=== PATIENT | male | born 1935 | race Caucasian/White ===

== ENCOUNTER 2021-03-29 11:42 | Inpatient (IN) ==
[2021-03-29] MEDS ORDERED: IOPAMIDOL 100 ML BOTTLE IV ONE (11:43)
--- NOTE | 2021-03-29 11:55 | Emergency Department Note ---
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 Per here w/ him LKW was 22:30 last night when he went to bed. He awoke this AM and had slurred speech, which persisted for a few hours and has nearly resolved at this point. He additionally pulled off his diaper this AM and urinated in the room. Otherwise he has been in his usual state of health. Further HX limited as he is somewhat altered and sluggish to respond, along w/ having very poor hearing. Related Data Home Medications Medication Instructions Recorded Confirmed multivitamin with minerals 1 tab PO QAM tab 05/12/19 03/19/21 (Multiple Vitamin-Minerals) vitamin B complex 1 cap PO QPM cap 05/12/19 03/29/21 cholecalciferol (vitamin D3) 125 125 mcg PO QDAY 09/26/19 03/29/21 mcg (5,000 unit) tablet (Vitamin D3) Previous Rx's Medication Instructions Recorded polyethylene glycol 3350 17 gram 17 g PO HSP PRN #100 each 11/30/18 oral powder packet apixaban 2.5 mg tablet (Eliquis) 2.5 mg PO BID #60 tab 03/04/20 hydrocodone 7.5 mg-acetaminophen 1 - 2 tab PO Q4-6HP PRN #120 tab 06/17/20 325 mg tablet diclofenac sodium 1 % topical gel 2 g TOPICAL QID #100 g 07/10/20 (Voltaren Arthritis Pain) finasteride 5 mg tablet 5 mg PO QDAY #90 tab 10/15/20 mirabegron 50 mg tablet,extended 50 mg PO QDAY #90 tab 12/12/20 release 24 hr (Myrbetriq) tamsulosin 0.4 mg capsule See Rx Instructions .ROUTE 12/23/20 .COMPLEX #180 cap omeprazole 40 mg capsule,delayed See Rx Instructions .ROUTE 01/22/21 release .COMPLEX #180 unknown measurement unit code: capsule duloxetine 60 mg capsule,delayed See Rx Instructions .ROUTE 02/10/21 release .COMPLEX #90 cap loratadine 10 mg tablet 10 mg PO QDAY #30 tab 02/12/21 levothyroxine 75 mcg tablet 75 mcg PO QDAY #90 tab 02/24/21 fentanyl 75 mcg/hr transdermal See Rx Instructions .ROUTE 03/12/21 patch .COMPLEX #15 ea lisinopril 40 mg tablet 20 mg PO QDAY #30 tab 03/12/21 memantine 5 mg tablet (Namenda) 5 mg PO BID #60 tab 03/14/21 Allergies Allergy/AdvReac Type Severity Reaction Status Date / Time No Known Drug Allergies Allergy Verified 03/29/21 12:14 Review of Systems ROS ROS Narrative: Narrative: All systems ED: reviewed and negative except as stated. 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) Postoperative pain (Chronic) Pain and swelling of knee (Chronic) Septic arthritis (Chronic) Fever, unknown origin (Chronic) Deep vein thrombosis (Chronic ~2011) Anemia (Chronic) Fracture of ankle, closed (Chronic) Anticoagulant long-term use (Chronic) Bladder neck obstruction (Chronic) Cellulitis and abscess (Chronic) Chronic neck pain (Chronic) Colonic polyp (Chronic) History of gout (Chronic) Hyperlipidemia (Chronic) Hypersomnia with sleep apnea (Chronic) Hypothyroidism (acquired) (Chronic) Knee pain (Chronic) Menieres disease (Chronic) Osteoarthritis (Chronic) Spinal stenosis (Chronic) Spondylolisthesis, acquired (Chronic) Testicular mass (Chronic) History of arthroscopic knee surgery (Chronic) History of carpal tunnel repair (Chronic) History of intraocular lens implant (Chronic) H/O repair of right rotator cuff (Chronic) History of nasal septoplasty (Chronic) Dehydration (Chronic) Syncope due to orthostatic hypotension (Chronic) BPH with obstruction/lower urinary tract symptoms (Chronic) Hay fever (Chronic) Arthritis (Chronic) Erectile dysfunction (Chronic) GERD (gastroesophageal reflux disease) (Chronic) Hypothyroid (Chronic) DVT (deep venous thrombosis) (Chronic) DDD (degenerative disc disease) (Chronic) Difficulty swallowing (Chronic) Indigestion (Chronic) Loss of appetite (Chronic) Back pain (Chronic) Muscle stiffness (Chronic) Fall (Acute) Head injury (Acute) Subdural hematoma (Acute) Subarachnoid hemorrhage (Acute) Pulmonary embolism on left (Acute) Thrombosis of popliteal vein (Acute) 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) Concussion with loss of consciousness of 30 minutes or less, subsequent encounter (Chronic) Speech articulation disorder (Chronic) Forgetfulness (Chronic) Sleeping excessive (Chronic) FH: Alzheimers disease (Chronic) Encounter for long-term (current) use of medications (Chronic) Pulmonary embolism (Chronic) Hx of deep venous thrombosis (Chronic) HTN (hypertension) (Chronic) Chronic narcotic dependence (Chronic) Laceration with foreign body of other part of head, sequela (Chronic) Shingles (Chronic ~10/2017) Encounter for preventative adult health care examination (Chronic) Chronic pain (Chronic) Degenerative disc disease, cervical (Chronic) Urinary incontinence (Chronic) Anticoagulated on Coumadin (Chronic) Dizziness (Chronic) Aortic stenosis (Chronic) Allergies (Chronic) Degenerative disc disease, lumbar (Chronic) Deviated septum (Chronic) Medicare annual wellness visit, subsequent (Chronic) Prostatic hypertrophy (Chronic) Positive colorectal cancer screening using Cologuard test (Acute 08/01/19) Senile dementia (Acute) BPH w urinary obs/LUTS (Acute) Impingement syndrome, shoulder, left (Acute) Mixed incontinence, urge and stress (male) (female) (Acute) Neurogenic bladder, NOS (Acute) Hematuria (Acute) Medical History Allergies Alzheimer's dementia Anemia 05/18/2014 Anticoagulant long-term use Anticoagulated on Coumadin Aortic stenosis Arthritis Back pain Bilateral cataracts Bladder neck obstruction BPH with obstruction/lower urinary tract symptoms Cellulitis and abscess 04/17/2014, 04/19/2014 Chronic narcotic dependence Chronic neck pain 05/18/2014 Chronic pain Colonic polyp Personal History of Concussion with loss of consciousness of 30 minutes or less, subsequent encounter DDD (degenerative disc disease) L-S Deep vein thrombosis (~2011) Degeneration of lumbar or lumbosacral intervertebral disc Degenerative disc disease, cervical Degenerative disc disease, lumbar Dehydration Deviated septum Difficulty swallowing Dizziness DVT (deep venous thrombosis) PE 2011, Chronic coumadin Tx Encounter for long-term (current) use of medications Encounter for preventative adult health care examination Erectile dysfunction Fever, unknown origin FH: Alzheimers disease Forgetfulness Fracture of ankle, closed R GERD (gastroesophageal reflux disease) Hay fever History of gout HTN (hypertension) Hx of deep venous thrombosis Hyperlipidemia Hypersomnia with sleep apnea 06/22/2014 Hypertension, essential Hypothyroid Hypothyroidism (acquired) Indigestion Knee pain 06/22/2014 right Laceration with foreign body of other part of head, sequela Loss of appetite Medicare annual wellness visit, subsequent Menieres disease Muscle stiffness Osteoarthritis Pain and swelling of knee Postoperative pain Prostatic hypertrophy benign prostatic hypertrophy with obstruction Pulmonary embolism Septic arthritis Shingles (~10/2017) Left abdomen Sleeping excessive Speech articulation disorder Spinal stenosis Spondylolisthesis, acquired Syncope due to orthostatic hypotension Testicular mass 04/17/2014, 04/19/2014 Traumatic subdural hemorrhage with loss of consciousness Urinary incontinence Surgical History H/O repair of right rotator cuff History of arthroscopic knee surgery right x2 History of carpal tunnel repair Bilateral History of esophagogastroduodenoscopy (EGD) (~06/30/16) Dr. Mejia - Normal w/possible presbyesophagus. History of intraocular lens implant Bilateral History of knee replacement, total (~07/2014) Right History of nasal septoplasty Family History Unknown Asthma Diabetes mellitus Essential hypertension Father , Age 76 Atherosclerosis of coronary artery Father at 76y and mother at 90 of old age Heart disease Hypertension Mother , Age 89 Atherosclerosis of coronary artery Brother Prostate cancer Sister Cancer Grandmother Heart disease Grandfather Heart disease Social History Smoking Status: Former smoker Alcohol Intake Frequency: former alcohol drinker Substance Use: does not use Exam Narrative Narrative: Narrative: General Limitations: altered mental status and physical limitation General appearance: Present alert and in no apparent distress Head Head: Present atraumatic and normocephalic ENT ENT: Present normal oropharynx and mucous membranes moist Chest Chest: Present normal inspection and symmetric chest wall rise Respiratory Respiratory: Present normal lung sounds bilaterally; Absent accessory muscle use or decreased breath sounds Cardiovascular Cardiovascular: Present regular rate, normal rhythm, +S1, +S2 and other (2+ B/L radial pulses); Absent systolic murmur or diastolic murmur Adbominal Abdominal: Present soft and normal bowel sounds; Absent distention or tenderness Extremities Extremities: Absent pedal edema Neurological Neurological: Present alert and other (Unable to answer AO questions, month, age, birthday. EOMI, no visual field deficits. No facial palsy or tongue deviation. B/LUE strength intact. RLE drift to bed, LLE strength intact. Intact sensation. Unable to understand ataxia instructions. Mild aphasia and dysarthria. No extinction. 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 DDx - CVA, SUPERINTENDENT infection, sepsis, seizure, metabolic/electrolyte d/o, arrhythmia, endocrine d/o Pt arrived w/ slurred speech and confusion. I evaluated him on arrival and he had an NIHSS of 8, w/ no assoc'd hypoglycemia and no threat to his airway. CT head and CTA head/neck were performed and were unremarkable. Clinically a seizure was unlikely. EKG showed first degree AV block and PVCs but this did not likely explain presentation. I d/w Dr Mullins w/ teleneuro who felt that he was not a tPA or endovascular candidate and recommended that he be admitted for further W/U including MRI if his infectious w/u is unremarkable. Given the nonfocal findings and the report of him urinating in the home I considered UTI b ut UA was unremarkable. I did not see evidence to suggest SUPERINTENDENT infection, PNA, cellulitis etc. CMP and CBC were unremarkable. Overall I felt a CVA was likely. ASA was not indicated in the ED per neuro as he was on apixaban. I d/w Dr Galloway who accepted him for admission. 12:32 d/w teleneuro, no tPA, will review CT head and CTA head/neck. She will call back w/ further recommendations. 12:45 d/w teleneuro, CT head and CTA head/neck negative, admit for further W/U, possible MRI, hold ASA as he is on apixaban. Lab Data Result diagrams: 03/29/21 11:56 03/29/21 11:55 Labs: Lab Results 03/29/21 03/29/21 03/29/21 Range/Units 11:55 11:56 11:56 WBC 5.6 (4.5-11.0) K/mcL RBC 3.94 L (4.63-6.08) M/mcL Hgb 12.2 L (13.7-17.5) g/dL Hct 36.1 L (40.1-51.0) % MCV 91.6 (80.0-100.0) fL MCH 31.0 (26.0-34.0) pg MCHC 33.8 (31.0-36.0) g/dL RDW 12.9 (11.5-14.5) % Plt Count 177 (140-440) K/mcL MPV 9.3 (7.4-10.4) fL Neut % (Auto) 79.2 H (38.0-78.0) % Lymph % (Auto) 15.3 L (15.5-49.0) % [place] % (Auto) 4.4 (1.0-12.0) % Eos % (Auto) 0.7 (0.0-7.0) % Baso % (Auto) 0.4 (0.0-2.0) % Lymph # (Auto) 0.86 L (1.50-4.80) K/mcL [place] # (Auto) 0.25 (0.10-0.90) K/mcL Eos # (Auto) 0.04 (0.00-0.70) K/mcL Baso # (Auto) 0.02 (0.00-0.30) K/mcL Absolute Neutrophils 4.45 (1.80-8.00) K/mcL POC PT 13.1 (11.9-14.5) sec PT 14.6 H (11.9-14.5) sec POC INR 1.1 (0.8-1.2) INR 1.1 (0.9-1.1) APTT 26.2 (20.0-37.0) sec Sodium 135 (133-145) mmol/L Potassium 4.1 (3.3-5.1) mmol/L Chloride 97 (96-108) mmol/L Carbon Dioxide 26 (22-30) mmol/L Anion Gap 12.0 (8.0-16.0) BUN 10 (8-23) mg/dL Creatinine 0.8 (0.7-1.2) mg/dL POC Creatinine 0.8 (0.6-1.2) mg/dL GFR Calculation 81 Glucose 94 (70-105) mg/dL Calcium 9.3 (8.6-10.4) mg/dL Total Bilirubin 0.6 (0.1-1.0) mg/dL AST 16 (<40) U/L ALT 12 (<40) U/L Alkaline Phosphatase 57 (39-117) U/L Total Creatine Kinase 72 (24-195) U/L CK-MB (CK-2) 2.3 (<6.7) ng/mL Troponin T (<0.03) ng/mL Total Protein 7.0 (5.9-8.4) gm/dL Albumin 4.3 (3.2-5.2) gm/dL Globulin 2.7 (2.2-3.7) gm/dL Albumin/Globulin Ratio 1.6 (1.0-2.3) Urine Color Urine Appearance (Clear) Urine pH (5.0-9.0) Ur Specific [place] (1.000-1.035) Urine Protein (Negative) mg/dL Urine Glucose (UA) (Negative) mg/dL Urine Ketones (Negative) mg/dL Urine Occult Blood (Negative) brock/mcL Urine Nitrate (Negative) Urine Bilirubin (Negative) mg/dL Urine Urobilinogen mg/dL Ur Leukocyte Esterase (Negative) /uL Urine RBC (0-3) /hpf Urine WBC (0-4) /hpf Ur Squamous Epith Cells (0-4) /hpf Urine Bacteria (0) /hpf Ur Culture Indicated? 03/29/21 03/29/21 Range/Units 11:56 13:37 WBC (4.5-11.0) K/mcL RBC (4.63-6.08) M/mcL Hgb (13.7-17.5) g/dL Hct (40.1-51.0) % MCV (80.0-100.0) fL MCH (26.0-34.0) pg MCHC (31.0-36.0) g/dL RDW (11.5-14.5) % Plt Count (140-440) K/mcL MPV (7.4-10.4) fL Neut % (Auto) (38.0-78.0) % Lymph % (Auto) (15.5-49.0) % [place] % (Auto) (1.0-12.0) % Eos % (Auto) (0.0-7.0) % Baso % (Auto) (0.0-2.0) % Lymph # (Auto) (1.50-4.80) K/mcL [place] # (Auto) (0.10-0.90) K/mcL Eos # (Auto) (0.00-0.70) K/mcL Baso # (Auto) (0.00-0.30) K/mcL Absolute Neutrophils (1.80-8.00) K/mcL POC PT (11.9-14.5) sec PT (11.9-14.5) sec POC INR (0.8-1.2) INR (0.9-1.1) APTT (20.0-37.0) sec Sodium (133-145) mmol/L Potassium (3.3-5.1) mmol/L Chloride (96-108) mmol/L Carbon Dioxide (22-30) mmol/L Anion Gap (8.0-16.0) BUN (8-23) mg/dL Creatinine (0.7-1.2) mg/dL POC Creatinine (0.6-1.2) mg/dL GFR Calculation Glucose (70-105) mg/dL Calcium (8.6-10.4) mg/dL Total Bilirubin (0.1-1.0) mg/dL AST (<40) U/L ALT (<40) U/L Alkaline Phosphatase (39-117) U/L Total Creatine Kinase (24-195) U/L CK-MB (CK-2) (<6.7) ng/mL Troponin T < 0.01 (<0.03) ng/mL Total Protein (5.9-8.4) gm/dL Albumin (3.2-5.2) gm/dL Globulin (2.2-3.7) gm/dL Albumin/Globulin Ratio (1.0-2.3) Urine Color Yellow Urine Appearance Clear (Clear) Urine pH 7.5 (5.0-9.0) Ur Specific [place] 1.015 (1.000-1.035) Urine Protein Negative (Negative) mg/dL Urine Glucose (UA) Negative (Negative) mg/dL Urine Ketones Negative (Negative) mg/dL Urine Occult Blood Trace-intact A (Negative) brock/mcL Urine Nitrate Negative (Negative) Urine Bilirubin Negative (Negative) mg/dL Urine Urobilinogen Normal mg/dL Ur Leukocyte Esterase Negative (Negative) /uL Urine RBC 2 (0-3) /hpf Urine WBC 1 (0-4) /hpf Ur Squamous Epith Cells 0 (0-4) /hpf Urine Bacteria None (0) /hpf Ur Culture Indicated? No EKG Data EKG #1: EKG attestation: Yes I reviewed and interpreted this EKG. and Yes There are no EKG findings of acute coronary syndrome EKG results narrative: Sinus rate of 64 MN 262 o/w normal QRS, QT/QTc intervals No STEMI First degree AV block Frequent PVCs Similar to previous but w/ new AV block and PVCs CC TIME Critical Care Time Attestation: Approximately 35 minutes of critical care time was used in order to assess and manage the high probability of imminent or life threatening deterioration to the central nervous system which required my highest level of preparedness and interventions with frequent patient assessments. This time is excluding time spent on separately billable procedures. Discharge Plan Patient/Caregiver Discharge Instructions Pt seen by [employer]/PA only: No Clinical Impression: Dysarthria, HTN (hypertension), Aphasia Patient Disposition: Xfer As Inpt ([facility]) Condition: Fair Follow up with: Chip Carrillo MD [Primary Care Provider] - Prescriptions: No Action polyethylene glycol 3350 17 gram powder in packet 17 g PO HSP PRN (Reason: Constipation) Qty: 100 3RF Eliquis 2.5 mg tablet 2.5 mg PO BID Qty: 60 12RF hydrocodone-acetaminophen 7.5-325 mg tablet 1 - 2 tab PO Q4-6HP PRN (Reason: Pain) Qty: 120 0RF finasteride 5 mg tablet 5 mg PO QDAY Qty: 90 3RF Myrbetriq 50 mg tablet extended release 24 hr 50 mg PO QDAY Qty: 90 7RF tamsulosin 0.4 mg capsule See Rx Instructions .ROUTE .COMPLEX Qty: 180 1RF Dose Instruction: TAKE TWO CAPSULES BY MOUTH EVERY EVENING Rx Instructions: TAKE TWO CAPSULES BY MOUTH EVERY EVENING omeprazole 40 mg capsule,delayed release(DR/EC) See Rx Instructions .ROUTE .COMPLEX Qty: 180 0RF Dose Instruction: TAKE ONE CAPSULE BY MOUTH TWICE DAILY Rx Instructions: TAKE ONE CAPSULE BY MOUTH TWICE DAILY duloxetine 60 mg capsule,delayed release(DR/EC) See Rx Instructions .ROUTE .COMPLEX Qty: 90 0RF Dose Instruction: TAKE ONE TABLET BY MOUTH DAILY Rx Instructions: TAKE ONE TABLET BY MOUTH DAILY levothyroxine 75 mcg tablet 75 mcg PO QDAY Qty: 90 3RF memantine [Namenda] 5 mg tablet 5 mg PO BID Qty: 60 0RF multivitamin with minerals tablet 1 tab PO QAM 0RF Rx Instructions: 1 po daily in the morning vitamin B complex Capsule 1 cap PO QPM 0RF Rx Instructions: 1 po every evening diclofenac sodium [Voltaren Arthritis Pain] 1 % gel 2 g topical QID Qty: 100 12RF Rx Instructions: apply to single elbow, wrist or hand; for hand includes palm/fingers/back of hand loratadine 10 mg tablet 10 mg PO QDAY Qty: 30 6RF lisinopril 40 mg tablet 20 mg PO QDAY Qty: 30 3RF fentanyl 75 mcg/hr patch 72 hour See Rx Instructions .ROUTE .COMPLEX Qty: 15 0RF Dose Instruction: apply ONE PATCH every 48 hours Rx Instructions: apply ONE PATCH every 48 hours, can fill 11/19/20 cholecalciferol (vitamin D3) [Vitamin D3] 125 mcg (5,000 unit) Tablet 125 mcg PO QDAY 0RF
[2021-03-29 12:03] LABS: POC Creatinine 0.8 mg/dL (0.6-1.2)
[2021-03-29 12:28] LABS: Basophils # (Auto) 0.02 K/mcL (0.00-0.30); Basophils % (Auto) 0.4 % (0.0-2.0); Eosinophils # (Auto) 0.04 K/mcL (0.00-0.70); Eosinophils % (Auto) 0.7 % (0.0-7.0); Hematocrit 36.1 % (40.1-51.0); Hemoglobin 12.2 g/dL (13.7-17.5); Lymphocytes # (Auto) 0.86 K/mcL (1.50-4.80); Lymphocytes % (Auto) 15.3 % (15.5-49.0); Mean Cell Volume 91.6 fL (80.0-100.0); Mean Corpuscular HGB Conc 33.8 g/dL (31.0-36.0); Mean Platelet Volume 9.3 fL (7.4-10.4); Monocytes # (Auto) 0.25 K/mcL (0.10-0.90); Monocytes % (Auto) 4.4 % (1.0-12.0); Neutrophils % (Auto) 79.2 % (38.0-78.0); Platelet Count 177 K/mcL (140-440); RBC 3.94 M/mcL (4.63-6.08); Red Cell Distribution Width 12.9 % (11.5-14.5); WBC 5.6 K/mcL (4.5-11.0)
[2021-03-29 12:39] LABS: POC INR 1.1 (0.8-1.2); POC Pro Time 13.1 sec (11.9-14.5)
--- NOTE | 2021-03-29 12:46 | Cat Scan Report ---
INDICATION: Neuro Deficit/acute stroke COMPARISON: Previous examination dated 11/24/2017 TECHNIQUE: Axial noncontrast-enhanced images through the brain. Sagittally and coronally reformatted images. FINDINGS: Cerebral hemispheres:There is mild cerebral atrophy, probably age appropriate. There is white matter abnormality consistent with small vessel ischemic change in this 86-year-old patient. There is left frontal encephalomalacia. No intra-axial hemorrhage. No acute intra-axial attenuation abnormalities. No localized mass effect. No midline shift. Brainstem and cerebellum:No intra-axial abnormality Extra-axial:No acute hemorrhage. No subdural or epidural hematoma. No subarachnoid hemorrhage. Basilar cisterns are normal. Some fat foci within the superior sagittal sinus are noted Calvarial:No calvarial fracture. No lytic lesion Temporal bones are negative. No destructive lesions Soft tissue, orbits, sinuses:Orbits and visualized facial soft tissues and paranasal sinuses are negative IMPRESSION: 1. No acute intracranial hemorrhage 2. White matter abnormality consistent with small vessel ischemic change 3. Left frontal encephalomalacia, nonacute The exam was performed using radiation dose optimization techniques including, but not limited to, automated exposure control, adjustment of the mA and/or kV according to patient size and use of iterative reconstruction technique. Interpreted and Authenticated by: Natalio Diego 03/29/21
[2021-03-29 12:54] LABS: ALT/SGPT 12 U/L (<40); AST/SGOT 16 U/L (<40); Albumin 4.3 gm/dL (3.2-5.2); Albumin/Globulin Ratio 1.6 (1.0-2.3); Alkaline Phosphatase 57 U/L (39-117); Bilirubin,Total 0.6 mg/dL (0.1-1.0); Blood Urea Nitrogen 10 mg/dL (8-23); Calcium 9.3 mg/dL (8.6-10.4); Carbon Dioxide 26 mmol/L (22-30); Chloride 97 mmol/L (96-108); Creatine Kinase 72 U/L (24-195); Creatine Kinase MB 2.3 ng/mL (<6.7); Globulin 2.7 gm/dL (2.2-3.7); Glomerular Filtration Rate 81; Glucose 94 mg/dL (70-105)
--- NOTE | 2021-03-29 12:56 | Cat Scan Report ---
INDICATION: neuro deficit/acute stroke COMPARISON: None. TECHNIQUE: Axial images were obtained through the upper chest, neck, and head during arterial phase. MIP and CPR reformatted images. 90ml Isovue 370 injected intravenously. FINDINGS: AORTIC ARCH: Mild calcified atherosclerotic plaque. Origins of the left subclavian artery, left vertebral artery, left common carotid artery, innominate artery, right common carotid artery, right subclavian artery, right vertebral artery are negative. No origin stenosis. CAROTID ARTERIES:Right: Right common carotid artery is negative. No stenosis or occlusion. Calcified plaque at the origin of the right internal carotid artery. No significant stenosis or evidence for ulceration. Right internal carotid artery is otherwise negative. No stenosis or occlusion. No fibromuscular dysplasia or dissection. Left: Left common carotid artery is negative. No stenosis or occlusion Calcified and mild noncalcified plaque at the origin of left internal carotid artery. There is mild luminal narrowing but no hemodynamically significant stenosis. No evidence for ulceration. Left internal carotid artery is otherwise negative. There is no stenosis or occlusion. No dissection or evidence for fibromuscular dysplasia VERTEBRAL ARTERIES:Vertebral arteries are patent without stenosis or occlusion [place]:[Calcified plaque in the cavernous segments of both internal carotid arteries. Right cavernous internal carotid artery is negative for stenosis. In the cavernous segment of the left internal carotid artery there is luminal narrowing. This is consistent with greater than 50% diameter. M1 segments of the middle cerebral arteries and A1 segments of the anterior cerebral arteries are negative. Intracranial vertebral arteries and basilar artery are negative. Posterior cerebral arteries and superior cerebellar arteries are negative] INTRACRANIAL CIRCULATION:No intracranial branch occlusion. No arteriovenous malformation or aneurysm No dural sinus occlusion UPPER CHEST:No pulmonary parenchymal mass or focal infiltrate. Superior mediastinum is negative NECK:No solid or cystic soft tissue mass. No pathologic lymphadenopathy. BRAIN:No acute intracranial hemorrhage. No focal attenuation abnormalities or pathologic contrast enhancement. IMPRESSION: 1. No intracranial branch occlusion 2. Atherosclerotic calcification in the proximal right internal carotid artery. No significant stenosis 3. Calcified and mild noncalcified plaque in the proximal left internal carotid artery. No hemodynamically significant stenosis 4. Calcified plaque in the cavernous segments of both internal carotid arteries. Greater than 50% diameter stenosis in the left internal carotid artery The exam was performed using radiation dose optimization techniques including, but not limited to, automated exposure control, adjustment of the mA and/or kV according to patient size and use of iterative reconstruction technique. Interpreted and Authenticated by: Natalio Diego 03/29/21
[2021-03-29 13:01] LABS: INR 1.1 (0.9-1.1); Partial Thromboplastin Time 26.2 sec (20.0-37.0); Prothrombin Time 14.6 sec (11.9-14.5)
[2021-03-29 14:04] LABS: Appearance,Urine Clear (Clear); Bilirubin,Urine Negative (Negative); Color,Urine Yellow; Culture Indicated,Urine No; Glucose,Urine (UA) Negative (Negative); Ketones,Urine Negative (Negative); Leukocyte Esterase,Urine Negative /uL (Negative); Nitrate,Urine Negative (Negative); PH,Urine 7.5 (5.0-9.0); Protein,Urine Negative (Negative); Specific Gravity,Urine 1.015 (1.000-1.035); Urine Blood Trace-intact ery/mcL (Negative); Urine RBC 2 /hpf (0-3); Urine Squamous Epithelial Cell 0 /hpf (0-4); Urine WBC 1 /hpf (0-4); Urobilinogen,Urine Normal
--- NOTE | 2021-03-29 18:16 | Internal Med History&Physical ---
HPI History of Present Illness Patient information: Note initiated : 03/29/21 at 6:08 pm Service Date, if different from initiated Date: [] Patient: Garry Chang 86 y/o M admitted on for HTN/WOLFF. Chief Complaint: [] Chief complaint: slurred speech History of present illness: Mr. Chang is a 86 year old male with a history of hypertension, recurrent DVT, pulmonary embolism, hypothyroidism, BPH, degenerative disc disease, chronic pain on opioids, Alzheimer's dementia who presented to the emergency department for slurred speech and aphasia. The patient's last known normal was 10:30 PM on 03/28/2021, the night prior to presenting to the emergency department. The patient underwent a stroke work-up in the ED that included a noncontrast CT head, CTA head and neck. There was no evidence of acute infarct on the CT scan, there was evidence of calcified plaque in the cavernous segments of both internal carotid arteries with greater than 50% diameter stenosis in the left internal carotid artery. NIH stroke score was 4. The emergency medicine provider discussed the patient with telestroke neurology, the recommendation was to continue Eliquis, admit the patient to [facility] for further work-up including MRI brain. Additional work-up in the ED included a urinalysis which was essentially negative. The patient's blood pressure was moderately elevated, he was afebrile and saturating well on room air. Hospital medicine was consulted for admission. The patient is unable to provide a history due to aphasia, history was taken from the patient's and son who are at the bedside. The patient's is his caregiver at home. In addition to the current new symptoms, the says that the patient had been falling at home recently and the day prior to admission he had a "bad day". The patient's blood pressure me dications were recently adjusted by discontinuing amlodipine due to concern that may be contributing to falls. The patient has a fentanyl patch of 75 mcg/hr every 72 hours for chronic pain. In the ED, the patient was drowsy, had pinpoint pupils raising the concern that perhaps the fentanyl patch may be contributing to his recent falls. Plan of care was discussed with the patient's , she is agreeable with hospital admission and to an MRI brain to evaluate for possible stroke. Discussed CODE STATUS, the patient's said that the patient's CODE STATUS is DNR/DNI. Review of systems: Unable to obtain due to aphasia Physical exam Head: Atraumatic, normal inspection. Eyes: normal appearance, no scleral icterus. Neck: full ROM Respiratory: no respiratory distress. Cardiovascular: normal rate and rhythm, S1, S2. GI/Abdominal: soft, nontender, no guarding. Extremities: full range of motion, nontender. Neurological: Receptive and possibly expressive aphasia, mild dysarthria. Psychiatric: normal mood. Skin: warm, normal color PFSH PFSH All Active Problems (Updated 03/29/21 @ 15:55 by Mihai Ludwig MD) Dysarthria (Acute) HTN (hypertension) (Acute) Aphasia (Acute) Alzheimer's dementia (Chronic) Hypertension, essential (Chronic) Degeneration of lumbar or lumbosacral intervertebral disc (Chronic) Postoperative pain (Chronic) Pain and swelling of knee (Chronic) Septic arthritis (Chronic) Fever, unknown origin (Chronic) Deep vein thrombosis (Chronic ~2011) Anemia (Chronic) Fracture of ankle, closed (Chronic) Anticoagulant long-term use (Chronic) Bladder neck obstruction (Chronic) Cellulitis and abscess (Chronic) Chronic neck pain (Chronic) Colonic polyp (Chronic) History of gout (Chronic) Hyperlipidemia (Chronic) Hypersomnia with sleep apnea (Chronic) Hypothyroidism (acquired) (Chronic) Knee pain (Chronic) Menieres disease (Chronic) Osteoarthritis (Chronic) Spinal stenosis (Chronic) Spondylolisthesis, acquired (Chronic) Testicular mass (Chronic) History of arthroscopic knee surgery (Chronic) History of carpal tunnel repair (Chronic) History of intraocular lens implant (Chronic) H/O repair of right rotator cuff (Chronic) History of nasal septoplasty (Chronic) Dehydration (Chronic) Syncope due to orthostatic hypotension (Chronic) BPH with obstruction/lower urinary tract symptoms (Chronic) Hay fever (Chronic) Arthritis (Chronic) Erectile dysfunction (Chronic) GERD (gastroesophageal reflux disease) (Chronic) Hypothyroid (Chronic) DVT (deep venous thrombosis) (Chronic) DDD (degenerative disc disease) (Chronic) Difficulty swallowing (Chronic) Indigestion (Chronic) Loss of appetite (Chronic) Back pain (Chronic) Muscle stiffness (Chronic) Fall (Acute) Head injury (Acute) Subdural hematoma (Acute) Subarachnoid hemorrhage (Acute) Pulmonary embolism on left (Acute) Thrombosis of popliteal vein (Acute) 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) Concussion with loss of consciousness of 30 minutes or less, subsequent encounter (Chronic) Speech articulation disorder (Chronic) Forgetfulness (Chronic) Sleeping excessive (Chronic) FH: Alzheimers disease (Chronic) Encounter for long-term (current) use of medications (Chronic) Pulmonary embolism (Chronic) Hx of deep venous thrombosis (Chronic) HTN (hypertension) (Chronic) Chronic narcotic dependence (Chronic) Laceration with foreign body of other part of head, sequela (Chronic) Shingles (Chronic ~10/2017) Encounter for preventative adult health care examination (Chronic) Chronic pain (Chronic) Degenerative disc disease, cervical (Chronic) Urinary incontinence (Chronic) Anticoagulated on Coumadin (Chronic) Dizziness (Chronic) Aortic stenosis (Chronic) Allergies (Chronic) Degenerative disc disease, lumbar (Chronic) Deviated septum (Chronic) Medicare annual wellness visit, subsequent (Chronic) Prostatic hypertrophy (Chronic) Positive colorectal cancer screening using Cologuard test (Acute 08/01/19) Senile dementia (Acute) BPH w urinary obs/LUTS (Acute) Impingement syndrome, shoulder, left (Acute) Mixed incontinence, urge and stress (male) (female) (Acute) Neurogenic bladder, NOS (Acute) Hematuria (Acute) Medical History Allergies Alzheimer's dementia Anemia 05/18/2014 Anticoagulant long-term use Anticoagulated on Coumadin Aortic stenosis Arthritis Back pain Bilateral cataracts Bladder neck obstruction BPH with obstruction/lower urinary tract symptoms Cellulitis and abscess 04/17/2014, 04/19/2014 Chronic narcotic dependence Chronic neck pain 05/18/2014 Chronic pain Colonic polyp Personal History of Concussion with loss of consciousness of 30 minutes or less, subsequent encounter DDD (degenerative disc disease) L-S Deep vein thrombosis (~2011) Degeneration of lumbar or lumbosacral intervertebral disc Degenerative disc disease, cervical Degenerative disc disease, lumbar Dehydration Deviated septum Difficulty swallowing Dizziness DVT (deep venous thrombosis) PE 2011, Chronic coumadin Tx Encounter for long-term (current) use of medications Encounter for preventative adult health care examination Erectile dysfunction Fever, unknown origin FH: Alzheimers disease Forgetfulness Fracture of ankle, closed R GERD (gastroesophageal reflux disease) Hay fever History of gout HTN (hypertension) Hx of deep venous thrombosis Hyperlipidemia Hypersomnia with sleep apnea 06/22/2014 Hypertension, essential Hypothyroid Hypothyroidism (acquired) Indigestion Knee pain 06/22/2014 right Laceration with foreign body of other part of head, sequela Loss of appetite Medicare annual wellness visit, subsequent Menieres disease Muscle stiffness Osteoarthritis Pain and swelling of knee Postoperative pain Prostatic hypertrophy benign prostatic hypertrophy with obstruction Pulmonary embolism Septic arthritis Shingles (~10/2017) Left abdomen Sleeping excessive Speech articulation disorder Spinal stenosis Spondylolisthesis, acquired Syncope due to orthostatic hypotension Testicular mass 04/17/2014, 04/19/2014 Traumatic subdural hemorrhage with loss of consciousness Urinary incontinence Surgical History H/O repair of right rotator cuff History of arthroscopic knee surgery right x2 History of carpal tunnel repair Bilateral History of esophagogastroduodenoscopy (EGD) (~06/30/16) Dr. Mejia - Normal w/possible presbyesophagus. 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 other: 4 Children/12GC/7GGC alcohol intake frequency: former alcohol drinker substance use type: does not use MEDS/ALLERGIES Home Medications and Allergies Home Medications Medication Instructions Recorded Confirmed Type polyethylene glycol 3350 17 gram 17 g PO HSP PRN #100 each 11/30/18 03/29/21 Rx oral powder packet multivitamin with minerals 1 tab PO QAM tab 05/12/19 03/29/21 History (Multiple Vitamin-Minerals) vitamin B complex 1 cap PO QPM cap 05/12/19 03/29/21 History cholecalciferol (vitamin D3) 125 125 mcg PO QDAY 09/26/19 03/29/21 History mcg (5,000 unit) tablet (Vitamin D3) apixaban 2.5 mg tablet (Eliquis) 2.5 mg PO BID #60 tab 03/04/20 03/29/21 Rx hydrocodone 7.5 mg-acetaminophen 1 - 2 tab PO Q4-6HP PRN #120 tab 06/17/20 03/29/21 Rx 325 mg tablet diclofenac sodium 1 % topical gel 2 g TOPICAL QID #100 g 07/10/20 03/29/21 Rx (Voltaren Arthritis Pain) finasteride 5 mg tablet 5 mg PO QDAY #90 tab 10/15/20 03/29/21 Rx mirabegron 50 mg tablet,extended 50 mg PO QDAY #90 tab 12/12/20 03/29/21 Rx release 24 hr (Myrbetriq) tamsulosin 0.4 mg capsule See Rx Instructions .ROUTE 12/23/20 03/29/21 Rx .COMPLEX #180 cap omeprazole 40 mg capsule,delayed See Rx Instructions .ROUTE 01/22/21 03/29/21 Rx release .COMPLEX #180 unknown measurement unit code: capsule duloxetine 60 mg capsule,delayed See Rx Instructions .ROUTE 02/10/21 03/29/21 Rx release .COMPLEX #90 cap loratadine 10 mg tablet 10 mg PO QDAY #30 tab 02/12/21 03/29/21 Rx levothyroxine 75 mcg tablet 75 mcg PO QDAY #90 tab 02/24/21 03/29/21 Rx fentanyl 75 mcg/hr transdermal See Rx Instructions .ROUTE 03/12/21 03/29/21 Rx patch .COMPLEX #15 ea lisinopril 40 mg tablet 20 mg PO QDAY #30 tab 03/12/21 03/29/21 Rx memantine 5 mg tablet (Namenda) 5 mg PO BID #60 tab 03/14/21 03/29/21 Rx Allergies Allergy/AdvReac Type Severity Reaction Status Date / Time No Known Drug Allergies Allergy Verified 03/29/21 12:14 EXAM Constitutional Vitals: Temp Pulse Resp BP Pulse Ox 98 F 71 16 158/69 94 03/29/21 11:44 03/29/21 16:47 03/29/21 13:14 03/29/21 16:47 03/29/21 16:47 DATA Data Completed and Pending Labs: Labs from last 24 hours 03/29/21 03/29/21 03/29/21 13:37 11:56 11:56 WBC RBC Hgb Hct MCV MCH MCHC RDW Plt Count MPV Neut % (Auto) Lymph % (Auto) [place] % (Auto) Eos % (Auto) Baso % (Auto) Lymph # (Auto) [place] # (Auto) Eos # (Auto) Baso # (Auto) Absolute Neutrophils POC PT 13.1 PT 14.6 H POC INR 1.1 INR 1.1 APTT 26.2 Sodium Potassium Chloride Carbon Dioxide Anion Gap BUN Creatinine POC Creatinine GFR Calculation Glucose Calcium Total Bilirubin AST ALT Alkaline Phosphatase Total Creatine Kinase CK-MB (CK-2) Troponin T < 0.01 Total Protein Albumin Globulin Albumin/Globulin Ratio Urine Color Yellow Urine Appearance Clear Urine pH 7.5 Ur Specific [place] 1.015 Urine Protein Negative Urine Glucose (UA) Negative Urine Ketones Negative Urine Occult Blood Trace-intact A Urine Nitrate Negative Urine Bilirubin Negative Urine Urobilinogen Normal Ur Leukocyte Esterase Negative Urine RBC 2 Urine WBC 1 Ur Squamous Epith Cells 0 Urine Bacteria None Ur Culture Indicated? No 03/29/21 03/29/21 11:56 11:55 WBC 5.6 RBC 3.94 L Hgb 12.2 L Hct 36.1 L MCV 91.6 MCH 31.0 MCHC 33.8 RDW 12.9 Plt Count 177 MPV 9.3 Neut % (Auto) 79.2 H Lymph % (Auto) 15.3 L [place] % (Auto) 4.4 Eos % (Auto) 0.7 Baso % (Auto) 0.4 Lymph # (Auto) 0.86 L [place] # (Auto) 0.25 Eos # (Auto) 0.04 Baso # (Auto) 0.02 Absolute Neutrophils 4.45 POC PT PT POC INR INR APTT Sodium 135 Potassium 4.1 Chloride 97 Carbon Dioxide 26 Anion Gap 12.0 BUN 10 Creatinine 0.8 POC Creatinine 0.8 GFR Calculation 81 Glucose 94 Calcium 9.3 Total Bilirubin 0.6 AST 16 ALT 12 Alkaline Phosphatase 57 Total Creatine Kinase 72 CK-MB (CK-2) 2.3 Troponin T Total Protein 7.0 Albumin 4.3 Globulin 2.7 Albumin/Globulin Ratio 1.6 Urine Color Urine Appearance Urine pH Ur Specific [place] Urine Protein Urine Glucose (UA) Urine Ketones Urine Occult Blood Urine Nitrate Urine Bilirubin Urine Urobilinogen Ur Leukocyte Esterase Urine RBC Urine WBC Ur Squamous Epith Cells Urine Bacteria Ur Culture Indicated? A/P Narrative A/P Narrative: Assessment: 86 year old male with a history of hypertension, recurrent DVT, pulmonary embolism, hypothyroidism, BPH, degenerative disc disease, chronic pain on opioids, Alzheimer's dementia who presented to the emergency department for slurred speech and aphasia and admitted for stroke work-up. Noncontrast CT head was negative for acute infarct, CTA head and neck were remarkable for greater than 50% diameter stenosis in the left internal carotid artery. #Dysarthria and aphasia #Concern for ischemic stroke #Essential hypertension #History of recurrent DVT/PE on low-dose Eliquis #Chronic pain on opioids including fentanyl patch #Degenerative disc disease #Recent falls at home #Hypothyroidism #BPH Plan -MRI brain. -Lipid panel, hemoglobin A1c. -Permissive blood pressure, labetalol IV and Vasotec IV as needed. -If MRI positive for acute stroke then order TTE. -Monitor with Neurochecks and NIH stroke scale. -Continue home Eliquis 2.5 mg twice daily. -Consider statin if in line with goals of care. -Hold home antihypertensives for now. -Reduce fentanyl patch to 50 mcg/hr every 72 hours, monitor for withdrawal symptoms. -Delirium bundle. -Bowel regimen. -PT and OT consult. -Regular diet. 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
[2021-03-29] MEDS ORDERED: POLYETHYLENE GLYCOL 3350 17 GM PACKET PO PRN (19:38)
[2021-03-29] MEDS ORDERED: ENALAPRILAT 1.25 MG/ML VIAL IV PRN (19:38)
[2021-03-29] MEDS ORDERED: ONDANSETRON 4 MG/2 ML VIAL IV PRN (19:38)
[2021-03-29] MEDS ORDERED: LABETALOL 5 MG/ML ML IV PRN (19:38)
[2021-03-29] MEDS ORDERED: HYDROCODONE/APAP 7.5/325MG TABLET PO PRN (19:59)
[2021-03-29] MEDS: fentaNYL 50 MCG PATCH TOPICAL SCH ×2 (20:48→22:50)
[2021-03-29] MEDS: TAMSULOSIN 0.4 MG CAPSULE PO SCH (22:08)
[2021-03-29] MEDS: MEMANTINE 10 MG TABLET PO SCH (22:08)
[2021-03-29] MEDS: DOCUSATE SODIUM 100 MG CAPSULE PO SCH (22:08)
[2021-03-29] MEDS: APIXABAN 5 MG TABLET PO SCH (22:08)
[2021-03-29] MEDS: SENNOSIDES 1 TABLET PO SCH (22:09)
[2021-03-29] MEDS: 0.9 % SODIUM CHLORIDE 10 ML SYRINGE IV SCH (22:09)
[2021-03-29 22:30] LABS: Estimated Average Glucose(eAG) 120 mg/dL; Hemoglobin A1C 5.8 % Hgb (4.0-6.0)
[2021-03-29] MEDS ORDERED: NALOXONE HCL 0.4 MG/ML VIAL IV ONE (23:03)
[2021-03-29] MEDS ORDERED: NALOXONE HCL 0.4 MG/ML VIAL ONE (23:12)
[2021-03-30] MEDS: 0.9 % SODIUM CHLORIDE 10 ML SYRINGE IV SCH ×2 (05:19→13:44)
[2021-03-30 06:53] LABS: Basophils # (Auto) 0.01 K/mcL (0.00-0.30); Basophils % (Auto) 0.1 % (0.0-2.0); Eosinophils # (Auto) 0 K/mcL (0.00-0.70); Eosinophils % (Auto) 0 % (0.0-7.0); Hematocrit 37.4 % (40.1-51.0); Hemoglobin 12.3 g/dL (13.7-17.5); Lymphocytes # (Auto) 1.13 K/mcL (1.50-4.80); Lymphocytes % (Auto) 15.6 % (15.5-49.0); Mean Corpuscular HGB Conc 32.9 g/dL (31.0-36.0); Mean Platelet Volume 10.4 fL (7.4-10.4); Monocytes % (Auto) 4.1 % (1.0-12.0); Neutrophils % (Auto) 80.2 % (38.0-78.0); Platelet Count 189 K/mcL (140-440); RBC 4.02 M/mcL (4.63-6.08); Red Cell Distribution Width 12.9 % (11.5-14.5); WBC 7.2 K/mcL (4.5-11.0)
[2021-03-30 07:12] LABS: Blood Urea Nitrogen 10 mg/dL (8-23); Calcium 9.3 mg/dL (8.6-10.4); Carbon Dioxide 24 mmol/L (22-30); Chloride 94 mmol/L (96-108); Glomerular Filtration Rate 81; Glucose 81 mg/dL (70-105); HDL Cholesterol 59 mg/dL (>40); LDL Cholesterol,Calculated 153 mg/dL (<100); Non-HDL Cholesterol 169 mg/dL (<130); Triglycerides 82 mg/dL (<150)
[2021-03-30] MEDS: DOCUSATE SODIUM 100 MG CAPSULE PO SCH ×2 (08:02→19:47)
[2021-03-30] MEDS: MEMANTINE 10 MG TABLET PO SCH ×2 (08:02→19:57)
[2021-03-30] MEDS: APIXABAN 5 MG TABLET PO SCH ×2 (08:03→19:57)
[2021-03-30] MEDS: OMEPRAZOLE 20 MG CAPSULE PO SCH ×2 (08:03→17:23)
[2021-03-30] MEDS ORDERED: FINASTERIDE 5 MG TABLET PO SCH (09:00)
[2021-03-30] MEDS ORDERED: LORATADINE 10 MG TABLET PO SCH (09:00)
[2021-03-30] MEDS ORDERED: DULoxetine 30 MG CAPSULE PO SCH (09:00)
[2021-03-30] MEDS ORDERED: LEVOTHYROXINE 75 MCG TABLET PO SCH (09:00)
[2021-03-30] MEDS ORDERED: fentaNYL 25 MCG PATCH TOPICAL SCH (10:00)
[2021-03-30] MEDS ORDERED: NALOXONE HCL 0.4 MG/ML VIAL IV PRN (11:00)
[2021-03-30 14:43] LABS: Thyroid Stimulating Hormone 1.09 uIU/mL (0.27-5.01)
[2021-03-30] MEDS: THIAMINE IV SCH ×2 (15:18→19:57)
[2021-03-30] MEDS: SODIUM CHLORIDE 0.9% IV SCH ×2 (15:18→19:57)
--- NOTE | 2021-03-30 16:09 | Internal Med Progress Note ---
SUBJECTIVE Subjective Patient information: Note initiated : 03/30/21 at 4:04 pm Service Date, if different from initiated Date: [] Patient: Garry Chang 86 y/o M admitted on 03/29/21 for HTN/WOLFF. Chief Complaint: [] Principal diagnosis: dysarthria Interval history: Mr. Chang is a 86 year old male with a history of hypertension, recurrent DVT, pulmonary embolism, hypothyroidism, BPH, degenerative disc disease, chronic pain on opioids, Alzheimer's dementia who presented to the emergency department for slurred speech and aphasia. The patient's last known normal was 10:30 PM on 03/28/2021, the night prior to presenting to the emergency department. The patient underwent a stroke work-up in the ED that included a noncontrast CT head, CTA head and neck. There was no evidence of acute infarct on the CT scan, there was evidence of calcified plaque in the cavernous segments of both internal carotid arteries with greater than 50% diameter stenosis in the left internal carotid artery. NIH stroke score was 4. The emergency medicine provider discussed the patient with telestroke neurology, the recommendation was to continue Eliquis, admit the patient to [facility] for further work-up including MRI brain. Additional work-up in the ED included a urinalysis which was essentially negative. The patient's blood pressure was moderately elevated, he was afebrile and saturating well on room air. Hospital medicine was consulted for admission. The patient is unable to provide a history due to aphasia, history was taken from the patient's and son who are at the bedside. The patient's is his caregiver at home. In addition to the current new symptoms, the says that the patient had been falling at home recently and the day prior to admission he had a "bad day". The patient's blood pressure medications were recently adjusted by discontinuing amlodipine due to concern that may be contributing to falls. The patient has a fentanyl patch of 75 mcg/hr every 72 hours for chronic pain. In the ED, the patient was drowsy, had pinpoint pupils raising the concern that perhaps the fentanyl patch may be contr ibuting to his recent falls. Plan of care was discussed with the patient's , she is agreeable with hospital admission and to an MRI brain to evaluate for possible stroke. Discussed CODE STATUS, the patient's said that the patient's CODE STATUS is DNR/DNI. 03/30 Developed symptomatic bradycardia with a heart rate in the 20's, resolved after one dose of Atropine 1 mg IV. Also requiring 2 L/min oxygen supplementation. Transferred to PCU. Reduced Fentanyl patch to 25 mcg/hr. Unable to get an MRI brain today due to staffing issues over weekend. In addition the patient had an episode of tremulousness overnight that resolved spontaneously, did not appear to be post ictal after however the patient was not mentating well to begin with. This morning the was mentating about the same as yesterday evening which is markedly different than his baseline according to family. Discussed possible transfer to a higher level of care that has neurology and cardiology specialty services with the patient's and son. They would like to pursue a transfer, will reach out to [facility] in [place] for possible transfer. Meanwhile started high dose thiamine IV, TSH and Vitamin B12 levels are ok. Ammonia was normal. VBG pending. Physical exam Head: Atraumatic, normal inspection. Eyes: normal appearance, no scleral icterus. Neck: full ROM Respiratory: nasal canla oxygen, no respiratory distress. Cardiovascular: normal rate and rhythm, S1, S2. GI/Abdominal: soft, nontender, no guarding. Extremities: full range of motion, nontender. Neurological: Aphasia, mild dysarthria, intact motor and sensory, intentional tremor. Psychiatric: normal mood, impaired memory. Skin: warm, normal color Constitutional Vitals: Vital Signs Temp Pulse Resp BP Pulse Ox 99 F 80 17 131/79 95 03/30/21 12:02 03/30/21 12:02 03/30/21 12:02 03/30/21 12:02 03/30/21 12:02 Period Temp Pulse Resp BP Sys/Corrigan Pulse Ox Last 24 Hr 98.3 F-99.8 F 59-99 14-19 131-180/66-111 85-100 Intake and Output 03/30/21 03/30/21 03/30/21 05:59 13:59 21:59 Intake Total 0 Output Total 2 1 Balance -2 -1 Intake & Output: Intake & Output 03/30/21 03/30/21 03/30/21 05:59 13:59 21:59 Intake Total 0 Output Total 2 1 Balance -2 -1 Intake: Oral 0 Output: # of times incontinent of urine 2 1 Other: Stool Size Small Small Stool Color Brown Brown Stool Consistency Soft Soft # Bowel Movements 1 OBJ DATA Labs CBC & Chem 7: 03/30/21 05:34 03/30/21 05:34 Labs: Abnormal Lab Results 03/30/21 03/30/21 03/30/21 13:00 05:34 05:34 RBC 4.02 L Hgb 12.3 L Hct 37.4 L Neut % (Auto) 80.2 H Lymph % (Auto) Lymph # (Auto) 1.13 L PT Sodium 132 L Chloride 94 L Cholesterol 228 H LDL Cholesterol, Calc 153 H Non-HDL Cholesterol 169 H Vitamin B12 > 2000.0 H Urine Occult Blood 03/29/21 03/29/21 03/29/21 13:37 11:56 11:56 RBC 3.94 L Hgb 12.2 L Hct 36.1 L Neut % (Auto) 79.2 H Lymph % (Auto) 15.3 L Lymph # (Auto) 0.86 L PT 14.6 H Sodium Chloride Cholesterol LDL Cholesterol, Calc Non-HDL Cholesterol Vitamin B12 Urine Occult Blood Trace-intact A Meds: Medications Hydrocodone Bitart/Acetaminophen (Hydrocodone/Apap 7.5/325mg Tablet) 1 tab PO Q4-6HP PRN PRN Reason: Pain Apixaban (Apixaban 5 Mg Tablet) 2.5 mg PO BID [facility] Last Admin: 03/30/21 08:03 Dose: 2.5 mg Documented by: Docusate Sodium (Docusate Sodium 100 Mg Capsule) 100 mg PO BID [facility] Last Admin: 03/30/21 08:02 Dose: 100 mg Documented by: Duloxetine HCl (Duloxetine 30 Mg Capsule) 60 mg PO DAILY [facility] Last Admin: 03/30/21 08:02 Dose: 60 mg Documented by: Enalaprilat (Enalaprilat 1.25 Mg/Ml Vial) 0.625 mg IV Q6HP PRN PRN Reason: Blood Pressure - High Fentanyl (Fentanyl 25 Mcg Patch) 25 mcg TOPICAL Q72H [facility] Last Admin: 03/30/21 14:37 Dose: 25 mcg Documented by: Finasteride (Finasteride 5 Mg Tablet) 5 mg PO QDAY [facility] Last Admin: 03/30/21 08:02 Dose: 5 mg Documented by: Thiamine HCl 300 mg/ Sodium (Chloride) 103 mls @ 100 mls/hr IV TID [facility] Stop: 04/02/21 14:59 Last Admin: 03/30/21 15:18 Dose: 100 mls/hr Documented by: Labetalol HCl (Labetalol 5 Mg/Ml Ml) 10 mg IV Q10M PRN PRN Reason: Blood Pressure - High Levothyroxine Sodium (Levothyroxine 75 Mcg Tablet) 75 mcg PO QDAY [facility] Last Admin: 03/30/21 08:02 Dose: 75 mcg Documented by: Loratadine (Loratadine 10 Mg Tablet) 10 mg PO QDAY [facility] Last Admin: 03/30/21 08:02 Dose: 10 mg Documented by: Memantine (Memantine 10 Mg Tablet) 5 mg PO BID [facility] Last Admin: 03/30/21 08:02 Dose: 5 mg Documented by: Naloxone HCl (Naloxone Hcl 0.4 Mg/Ml Vial) 0.2 mg IV Q5M PRN PRN Reason: Opiate Reversal Omeprazole (Omeprazole 20 Mg Capsule) 40 mg PO BIDAC [facility] Last Admin: 03/30/21 08:03 Dose: 40 mg Documented by: Ondansetron HCl (Ondansetron 4 Mg/2 Ml Vial) 4 mg IV Q6HP PRN PRN Reason: Nausea And Vomiting Last Admin: 03/29/21 22:08 Dose: 4 mg Documented by: Diclofenac Sodium [ Voltaren Arthritis Pain] 1 % Gel 2 dose TOPICAL QID [facility] Last Admin: 03/30/21 13:27 Dose: Not Given Documented by: Polyethylene Glycol (Polyethylene Glycol 3350 17 Gm Packet) 17 gm PO HSP PRN PRN Reason: Constipation Senna (Sennosides 1 Tablet) 2 tab PO [facility] Last Admin: 03/29/21 22:09 Dose: Not Given Documented by: Sodium Chloride (0.9 % Sodium Chloride 10 Ml Syringe) 10 ml IV Q8 [facility] Last Admin: 03/30/21 13:44 Dose: 10 ml Documented by: Tamsulosin HCl (Tamsulosin 0.4 Mg Capsule) 0.8 mg PO [facility] Last Admin: 03/29/21 22:08 Dose: Not Given Documented by: A/P Narrative A/P Narrative: Assessment: 86 year old male with a history of hypertension, recurrent DVT, pulmonary embolism, hypothyroidism, BPH, degenerative disc disease, chronic pain on opioids, Alzheimer's dementia, recent falls who presented to the emergency department for slurred speech and aphasia and was admitted for stroke work-up. Noncontrast CT head was negative for acute infarct, CTA head and neck were remarkable for greater than 50% diameter stenosis in the left internal carotid artery. The patient developed symptomatic bradycardia requiring Atropine IV. MRI brain unable to be competed over the weekend. #Dysarthria and aphasia #Encephalopathy #Concern for ischemic stroke #Concern for seizure #Intermittent symptomatic bradycardia #Mild hyponatremia #Essential hypertension #History of recurrent DVT/PE on low-dose Eliquis #Chronic pain on opioids including fentanyl patch #Degenerative disc disease #Recent falls at home #Hypothyroidism #BPH Plan -MRI brain. -TTE ordered. -VBG -Permissive blood pressure, labetalol IV and Vasotec IV as needed. -Monitor with Neurochecks and NIH stroke scale. -Continue home Eliquis 2.5 mg twice daily. -Consider statin if in line with goals of care. -Hold home antihypertensives for now. -Reduce fentanyl patch to 25 mcg/hr every 72 hours, monitor for withdrawal symptoms. -High dose thiamine IV x3 days. -Delirium bundle. -Bowel regimen. -PT and OT consult. -Regular diet. 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 Time Spent With Patient Time: Total time spent is greater than 50% in coordination of care (as documented) at patient's floor/unit and/or counseling patient: QUALITY Stroke Symptom Onset Unknown: No VTE Deep Vein Thrombosis/Pulmonary Embolism Present on Admission: No
[2021-03-30 16:42] LABS: ABG Methemoglobin 0.3 % (0.4-1.5); Total Hemoglobin 11.8 gm/Dl (13.5-16.5); VBG Base Excess 5 (-2-3); VBG HCO3 29.4 mmol/L (24.0-28.0); VBG Oxygen Saturation 88.1 % (40.0-70.0); VBG PCO2 43.9 mmHg (41.0-51.0); VBG PH 7.44 U (7.32-7.42); VBG PO2 66.5 mmHg (25.0-40.0); VBG Total CO2 30.8 mmol/L (25.0-29.0)
--- NOTE | 2021-03-30 16:50 | XRay Report ---
INDICATION: hypoxia TECHNIQUE: AP portable upright chest x-ray COMPARISON: Previous chest x-rays dated 01/07/2018, 12/12/2015 FINDINGS: Lungs:Lungs are negative. No focal pulmonary parenchymal infiltrate or mass Heart, vascular:No significant cardiomegaly. Pulmonary vascularity is normal. No pulmonary edema or pulmonary congestion Mediastinum, shannen:No mediastinal widening. No hilar mass Pleura:No pleural fluid. No pleural-based mass or calcification Skeletal:Negative. IMPRESSION: 1. Negative chest x-ray 2. No significant interval change Interpreted and Authenticated by: Natalio Diego 03/30/21
--- NOTE | 2021-03-30 19:11 | Discharge Summary ---
Discharge Provider Provider Patient information: Note initiated : 03/30/21 at 7:02 pm Service Date, if different from initiated Date: [] Patient: Garry Chang 86 y/o M admitted on 03/29/21 for HTN/WOLFF. Chief Complaint: [] Date of admission: 03/29/21 19:16 Discharge date: 03/30/21 Primary care physician: Chip Carrillo MD Consults: 03/29/21 Consult to Physician [CONS] Stat Comment: Consulting Provider: Aidan Galloway Reason For Exam: Physician to Consult Discharge Meds Discharge Medications Home Medications polyethylene glycol 3350 17 gram oral powder packet 17 g PO HSP PRN #100 each 11/30/18 [Rx Confirmed 03/29/21 Last Taken Unknown] multivitamin with minerals (Multiple Vitamin-Minerals) 1 tab PO QAM tab 05/12/19 [History Confirmed 03/29/21 Last Taken Unknown] vitamin B complex 1 cap PO QPM cap 05/12/19 [History Confirmed 03/29/21 Last Taken Unknown] cholecalciferol (vitamin D3) 125 mcg (5,000 unit) tablet (Vitamin D3) 125 mcg PO QDAY 09/26/19 [History Confirmed 03/29/21 Last Taken Unknown] apixaban 2.5 mg tablet (Eliquis) 2.5 mg PO BID #60 tab 03/04/20 [Rx Confirmed 03/29/21 Last Taken Unknown] hydrocodone 7.5 mg-acetaminophen 325 mg tablet 1 - 2 tab PO Q4-6HP PRN #120 tab 06/17/20 [Rx Confirmed 03/29/21 Last Taken Unknown] diclofenac sodium 1 % topical gel (Voltaren Arthritis Pain) 2 g TOPICAL QID #100 g 07/10/20 [Rx Confirmed 03/29/21 Last Taken Unknown] finasteride 5 mg tablet 5 mg PO QDAY #90 tab 10/15/20 [Rx Confirmed 03/29/21 Last Taken Unknown] mirabegron 50 mg tablet,extended release 24 hr (Myrbetriq) 50 mg PO QDAY #90 tab 12/12/20 [Rx Confirmed 03/29/21 Last Taken Unknown] tamsulosin 0.4 mg capsule See Rx Instructions .ROUTE .COMPLEX #180 cap 12/23/20 [Rx Confirmed 03/29/21 Last Taken Unknown] omeprazole 40 mg capsule,delayed release See Rx Instructions .ROUTE .COMPLEX # 180 unknown measurement unit code: capsule 01/22/21 [Rx Confirmed 03/29/21 Last Taken Unknown] duloxetine 60 mg capsule,delayed release See Rx Instructions .ROUTE .COMPLEX #90 cap 02/10/21 [Rx Confirmed 03/29/21 Last Taken Unknown] loratadine 10 mg tablet 10 mg PO QDAY #30 tab 02/12/21 [Rx Confirmed 03/29/21 Last Taken Unknown] levothyroxine 75 mcg tablet 75 mcg PO QDAY #90 tab 02/24/21 [Rx Confirmed 03/29/21 Last Taken Unknown] fentanyl 75 mcg/hr transdermal patch See Rx Instructions .ROUTE .COMPLEX #15 ea 03/12/21 [Rx Confirmed 03/29/21 Last Taken Unknown] lisinopril 40 mg tablet 20 mg PO QDAY #30 tab 03/12/21 [Rx Confirmed 03/29/21 Last Taken Unknown] memantine 5 mg tablet (Namenda) 5 mg PO BID #60 tab 03/14/21 [Rx Confirmed 03/29/21 Last Taken Unknown] COURSE Hospital Course Hospital course: Mr. Chang is a 86 year old male with a history of hypertension, recurrent DVT, pulmonary embolism on low dose Eliquis, hypothyroidism, BPH, degenerative disc disease, chronic pain on opioids, remove subdural hematoma, Alzheimer's dementia who presented to the emergency department for slurred speech and aphasia. The patient's last known normal was 10:30 PM on 03/28/2021, the night prior to presenting to the emergency department. The patient underwent a stroke work-up in the ED that included a noncontrast CT head, CTA head and neck. There was no evidence of acute infarct on the CT scan, chronic left frontal encephalomalacia noted, there was evidence of calcified plaque in the cavernous segments of both internal carotid arteries with greater than 50% diameter stenosis in the left internal carotid artery. NIH stroke score was 4 in the ED. The emergency medicine provider discussed the patient with telestroke neurology, the recommendation was to continue Eliquis, admit the patient to [facility] for further work-up including MRI brain. Additional work-up in the ED included a urinalysis which was essentially normal. The patient's blood pressure was moderately elevated in the ED, he was afebrile and saturating well on room air. Hospital medicine was consulted for admission. The patient is unable to provide a history due to aphasia, history was taken from the patient's and son who are at the bedside. The patient's is his caregiver at home. In addition to the current new symptoms, the says that the patient had been falling at home recently and the day prior to admission he had a "bad day". The patient's blood pressure medications were recently adjusted by discontinuing amlodipine due to concern that may be contributing to falls. The patient has a fentanyl patch of 75 mcg/hr every 72 hours for chronic pain. In the ED, the patient was drowsy, had pinpoint pupils raising the concern that perhaps the fentanyl patch may be contributing to his recent falls. Plan of care was discussed with the patient's , she is agreeable with hospital admission and to an MRI brain to evaluate for possible stroke. Discussed CODE STATUS, the patient's said that the patient's CODE STATUS is DNR/DNI. The patient was admitted to the medical unit on a senior estimator. Held home Lisinopril for permissive blood pressure. Continued Eliquis per stroke-neurology recommendations, did not add aspirin. Was not taking a statin prior to admission, waiting to see what the LDL level is and if the patient actually has an ischemic stroke. MRI brain ordered, TTE ordered, morning lipids and hemoglobin A1c, neurochecks and NIHSS. Fentanyl patch was decreased from 75 mcg/hr to 50 mcg/hr every 72 hours. Overnight the patient became more confused and the fentanyl patch was removed. The patient had an episode of tremulousness overnight that resolved spontaneously, did not appear to be post ictal so doubt seizure but atypical seizure is within the differential for recent status change. The night was otherwise uneventful. 03/30 The patient developed symptomatic bradycardia this morning with a heart rate in the 20's, resolved after one dose of Atropine 1 mg IV. Also requiring 2 L/min oxygen supplementation. Chest xray ordered and was interpreted as negative by radiology. Transferred to PCU. More alert in the afternoon, following commands but continues to have what appears to be aphasia but might be encephalopathic or both. Other than intermittent bradycardia and moderately elevated blood pressure vitals have been in the normal range. Appears uncomfortable, could be drawling from opioid after fentanyl patch was removed yesterday evening. Started a Fentanyl patch dose of 25 mcg/hr every 72 hours, much reduced compared to prior home dose. Unable to get an MRI brain today due to staffing issues over weekend. TTE was completed and now waiting on the report. Lab work shows LDL 153, normal Hgb A1c, normal TSH and ammonia, elevated vitamin B12. Venous blood gas showed normal pH and pCO2. Started high dose IV thiamine supplementation. Discussed possible transfer to a higher level of care that has neurology and cardiology specialty services with the patient's and son. They would like to pursue a transfer, will reach out to [facility] in [place] for possible transfer. The patient had another episode of less severe sinus bradycardia that resolved spontaneously, heart rate in the 40s. *Discussed the patient with multiple providers at [facility]- cardiology, neurology, hospital medicine, and critical care. Hospital medicine felt the patient should be admitted to the ICU due to bradycardia. That patient was accepted by cardiology, neurology and critical care. At discharge/transfer to [facility], the patient's home medications were continued as before admission to avoid confusion. Important medical changes during the hospital stay at [facility] have been noted in this discharge summary. Physical exam Head: Atraumatic, normal inspection. Eyes: normal appearance, no scleral icterus. Neck: full ROM Respiratory: nasal canula oxygen, no respiratory distress. Cardiovascular: normal rate and rhythm, S1, S2. GI/Abdominal: soft, nontender, no guarding. Extremities: full range of motion, nontender. Neurological: Aphasia, mild dysarthria, intact motor and sensory, intentional tremor. Psychiatric: withdrawn, impaired cognition. Skin: warm, normal color Discharge diagnosis: Dysarthria, aphasia, encephalopathy Secondary discharge diagnosis: Intermittent symptomatic bradycardia Time Spent with Patient Time attestation: Total time spent providing and/or coordinating discharge services: EXAM Constitutional Vitals: Temp Pulse Resp BP Pulse Ox 99 F 80 17 131/79 95 03/30/21 12:02 03/30/21 12:02 03/30/21 12:02 03/30/21 12:02 03/30/21 12:02 Discharge Data Data Completed and Pending Labs on day of discharge: Labs from last 24 hours 03/30/21 03/30/21 03/30/21 16:26 13:00 13:00 WBC RBC Hgb Hct MCV MCH MCHC RDW Plt Count MPV Neut % (Auto) Lymph % (Auto) Petroleum % (Auto) Eos % (Auto) Baso % (Auto) Lymph # (Auto) Petroleum # (Auto) Eos # (Auto) Baso # (Auto) Absolute Neutrophils ABG Methemoglobin 0.3 L VBG pH 7.44 H VBG pCO2 43.9 VBG pO2 66.5 H VBG HCO3 29.4 H VBG Total CO2 30.8 H VBG O2 Saturation 88.1 H VBG Base Excess 5 H Carboxyhemoglobin 5.3 H Total Hemoglobin 11.8 L Sodium Potassium Chloride Carbon Dioxide Anion Gap BUN Creatinine GFR Calculation Glucose Hemoglobin A1c Estim Average Glucose Calcium Magnesium Ammonia 18 Triglycerides Cholesterol LDL Cholesterol, Calc Non-HDL Cholesterol HDL Cholesterol Vitamin B12 > 2000.0 H TSH 1.09 03/30/21 03/30/21 03/30/21 05:34 05:34 05:34 WBC 7.2 RBC 4.02 L Hgb 12.3 L Hct 37.4 L MCV 93.0 MCH 30.6 MCHC 32.9 RDW 12.9 Plt Count 189 MPV 10.4 Neut % (Auto) 80.2 H Lymph % (Auto) 15.6 Petroleum % (Auto) 4.1 Eos % (Auto) 0 Baso % (Auto) 0.1 Lymph # (Auto) 1.13 L Petroleum # (Auto) 0.30 Eos # (Auto) 0 Baso # (Auto) 0.01 Absolute Neutrophils 5.80 ABG Methemoglobin VBG pH VBG pCO2 VBG pO2 VBG HCO3 VBG Total CO2 VBG O2 Saturation VBG Base Excess Carboxyhemoglobin Total Hemoglobin Sodium 132 L Potassium 3.9 Chloride 94 L Carbon Dioxide 24 Anion Gap 14.0 BUN 10 Creatinine 0.8 GFR Calculation 81 Glucose 81 Hemoglobin A1c Estim Average Glucose Calcium 9.3 Magnesium 2.2 Ammonia Triglycerides 82 Cholesterol 228 H LDL Cholesterol, Calc 153 H Non-HDL Cholesterol 169 H HDL Cholesterol 59 Vitamin B12 TSH 03/29/21 20:33 WBC RBC Hgb Hct MCV MCH MCHC RDW Plt Count MPV Neut % (Auto) Lymph % (Auto) Petroleum % (Auto) Eos % (Auto) Baso % (Auto) Lymph # (Auto) Petroleum # (Auto) Eos # (Auto) Baso # (Auto) Absolute Neutrophils ABG Methemoglobin VBG pH VBG pCO2 VBG pO2 VBG HCO3 VBG Total CO2 VBG O2 Saturation VBG Base Excess Carboxyhemoglobin Total Hemoglobin Sodium Potassium Chloride Carbon Dioxide Anion Gap BUN Creatinine GFR Calculation Glucose Hemoglobin A1c 5.8 Estim Average Glucose 120 Calcium Magnesium Ammonia Triglycerides Cholesterol LDL Cholesterol, Calc Non-HDL Cholesterol HDL Cholesterol Vitamin B12 TSH Discharge Plan Patient/Caregiver Discharge Instructions Activity: as per physical therapy Diet: Regular Diet Prescriptions: Continued polyethylene glycol 3350 17 gram powder in packet 17 g PO HSP PRN (Reason: Constipation) Qty: 100 3RF Eliquis 2.5 mg tablet 2.5 mg PO BID Qty: 60 12RF hydrocodone-acetaminophen 7.5-325 mg tablet 1 - 2 tab PO Q4-6HP PRN (Reason: Pain) Qty: 120 0RF finasteride 5 mg tablet 5 mg PO QDAY Qty: 90 3RF Myrbetriq 50 mg tablet extended release 24 hr 50 mg PO QDAY Qty: 90 7RF tamsulosin 0.4 mg capsule See Rx Instructions .ROUTE .COMPLEX Qty: 180 1RF Dose Instruction: TAKE TWO CAPSULES BY MOUTH EVERY EVENING Rx Instructions: TAKE TWO CAPSULES BY MOUTH EVERY EVENING omeprazole 40 mg capsule,delayed release(DR/EC) See Rx Instructions .ROUTE .COMPLEX Qty: 180 0RF Dose Instruction: TAKE ONE CAPSULE BY MOUTH TWICE DAILY Rx Instructions: TAKE ONE CAPSULE BY MOUTH TWICE DAILY duloxetine 60 mg capsule,delayed release(DR/EC) See Rx Instructions .ROUTE .COMPLEX Qty: 90 0RF Dose Instruction: TAKE ONE TABLET BY MOUTH DAILY Rx Instructions: TAKE ONE TABLET BY MOUTH DAILY levothyroxine 75 mcg tablet 75 mcg PO QDAY Qty: 90 3RF memantine [Namenda] 5 mg tablet 5 mg PO BID Qty: 60 0RF multivitamin with minerals tablet 1 tab PO QAM 0RF Rx Instructions: 1 po daily in the morning vitamin B complex Capsule 1 cap PO QPM 0RF Rx Instructions: 1 po every evening diclofenac sodium [Voltaren Arthritis Pain] 1 % gel 2 g topical QID Qty: 100 12RF Rx Instructions: apply to single elbow, wrist or hand; for hand includes palm/fingers/back of hand loratadine 10 mg tablet 10 mg PO QDAY Qty: 30 6RF lisinopril 40 mg tablet 20 mg PO QDAY Qty: 30 3RF fentanyl 75 mcg/hr patch 72 hour See Rx Instructions .ROUTE .COMPLEX Qty: 15 0RF Dose Instruction: apply ONE PATCH every 48 hours Rx Instructions: apply ONE PATCH every 48 hours, can fill 11/19/20 cholecalciferol (vitamin D3) [Vitamin D3] 125 mcg (5,000 unit) Tablet 125 mcg PO QDAY 0RF Follow Up Plan Follow up with: Chip Carrillo MD [Primary Care Provider] - Patient Disposition: General Acute Hospital Prognosis: Fair Rehab Potential: Serious Overall status at discharge: patient is not back to baseline Discharge Orders: Discharge Order (Routine); Ordered 03/30/21 Ordered By: Aidan Galloway QUALITY VTE Deep Vein Thrombosis/Pulmonary Embolism Present on Admission: No
[2021-03-30] MEDS: SENNOSIDES 1 TABLET PO SCH (19:47)
[2021-03-30] MEDS: TAMSULOSIN 0.4 MG CAPSULE PO SCH (19:56)
[2021-03-30] MEDS ORDERED: ATROPINE SULFATE 1 MG/10 ML SYRINGE IV ONE (21:26)
--- NOTE | 2021-03-31 12:38 | EKG ---
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
--- NOTE | 2021-04-02 09:42 | EKG ---
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
== END 2021-03-30 21:27 | disposition short-term general hospital (02) | DRG 91 ==
LOC: ED 11:42 → MEDSUR 19:16 → ICU 03-30 11:23
PROVIDERS: ADMIT Internal Medicine; ATTEND Internal Medicine

== ENCOUNTER 2024-07-08 09:31 | Observation (INO) ==
[2024-07-08 10:01] LABS: Basophils # (Auto) 0.02 K/mcL (0.00-0.30); Basophils % (Auto) 0.4 % (0.0-2.0); Eosinophils # (Auto) 0.06 K/mcL (0.00-0.70); Eosinophils % (Auto) 1.2 % (0.0-7.0); Hematocrit 43.2 % (40.1-51.0); Hemoglobin 13.9 g/dL (13.7-17.5); Lymphocytes # (Auto) 1.44 K/mcL (1.50-4.80); Lymphocytes % (Auto) 29.8 % (15.5-49.0); Mean Cell Volume 93.3 fL (80.0-100.0); Mean Corpuscular HGB Conc 32.2 g/dL (31.0-36.0); Mean Platelet Volume 9.8 fL (8.8-12.5); Monocytes # (Auto) 0.34 K/mcL (0.10-0.90); Neutrophils % (Auto) 61.4 % (38.0-78.0); Platelet Count 180 K/mcL (140-440); RBC 4.63 M/mcL (4.63-6.08); Red Cell Distribution Width 13.7 % (11.5-14.5); WBC 4.8 K/mcL (4.5-11.0)
[2024-07-08] MEDS: 0.9 % SODIUM CHLORIDE 500 ML IV ONE (10:21)
[2024-07-08 10:30] LABS: ALT/SGPT 7 U/L (<40); AST/SGOT 20 U/L (<40); Albumin 4.2 gm/dL (3.2-5.2); Albumin/Globulin Ratio 1.5 (1.0-2.3); Alkaline Phosphatase 75 U/L (39-117); Bilirubin,Total 0.5 mg/dL (0.1-1.0); Blood Urea Nitrogen 16 mg/dL (8-23); Calcium 9.4 mg/dL (8.6-10.4); Carbon Dioxide 28 mmol/L (22-30); Chloride 98 mmol/L (96-108); Globulin 2.8 gm/dL (2.2-3.7); Glomerular Filtration Rate 66; Glucose 130 mg/dL (70-105); Potassium 3.5 mmol/L (3.3-5.1); Sodium 137 mmol/L (133-145); Thyroid Stimulating Hormone 6.01 uIU/mL (0.27-5.01)
[2024-07-08 11:14] LABS: Free T4 (Free Thyroxine) 1.24 ng/dL (0.93-1.70)
[2024-07-08 13:38] LABS: Appearance,Urine Clear (Clear); Bilirubin,Urine Negative (Negative); Color,Urine Yellow; Glucose,Urine (UA) Negative (Negative); Ketones,Urine Negative (Negative); Leukocyte Esterase,Urine Negative /uL (Negative); Mucus,Urine Few /hpf; Nitrate,Urine Negative (Negative); PH,Urine 5.5 (5.0-9.0); Protein,Urine 30 mg/dL (Negative); Urine Blood Negative ery/mcL (Negative); Urine Hyaline Cast 33 /lph (0-2); Urine RBC 0 /hpf (0-3); Urine Squamous Epithelial Cell 0 /hpf (0-4); Urine WBC 0 /hpf (0-4); Urobilinogen,Urine Normal
[2024-07-08] MEDS ORDERED: SENNOSIDES 1 TABLET PO PRN (16:01)
[2024-07-08] MEDS ORDERED: POTASSIUM CHLORIDE 20 MEQ TABLET PO PRN ×2 (16:01)
[2024-07-08] MEDS ORDERED: ONDANSETRON 4 MG/2 ML VIAL IV PRN (16:01)
[2024-07-08] MEDS ORDERED: POTASSIUM CHLORIDE 40 MEQ in DEXTROSE 5% IN WATER 500 ML IV PRN (16:01)
[2024-07-08] MEDS ORDERED: IPRATROPIUM/ALBUTEROL 3 ML AMPUL.NEB NEB PRN (16:01)
[2024-07-08] MEDS ORDERED: POLYETHYLENE GLYCOL 3350 17 GM PACKET PO PRN (16:01)
[2024-07-08] MEDS ORDERED: METOCLOPRAMIDE 10 MG/2 ML VIAL IV PRN (16:01)
[2024-07-08] MEDS ORDERED: MAGNESIUM SULFATE 2 GM/50 ML BAG IV PRN (16:01)
[2024-07-08] MEDS: 0.9 % SODIUM CHLORIDE 1,000 ML IV ONE (16:25)
[2024-07-08] MEDS ORDERED: METHOCARBAMOL 750 MG TABLET PO PRN (16:45)
[2024-07-08] MEDS: OMEPRAZOLE 20 MG CAPSULE PO SCH (17:59)
[2024-07-08] MEDS: MIRABEGRON 50 MG PO SCH (20:10)
[2024-07-08] MEDS: amLODIPine 5 MG TABLET PO SCH (20:49)
[2024-07-08] MEDS: CARBIDOPA/LEVODOPA 25/100 TABLET PO SCH (20:49)
[2024-07-08] MEDS: MEMANTINE 10 MG TABLET PO SCH (20:49)
[2024-07-08] MEDS: TAMSULOSIN 0.4 MG CAPSULE PO SCH (20:49)
[2024-07-08] MEDS: APIXABAN 2.5 MG TABLET PO SCH (20:49)
[2024-07-08] MEDS: DOCUSATE SODIUM 100 MG CAPSULE PO SCH (20:50)
[2024-07-08] MEDS: hydrALAZINE 20 MG/ML VIAL IV PRN (23:58)
[2024-07-09 05:45] LABS: Basophils # (Auto) 0.01 K/mcL (0.00-0.30); Basophils % (Auto) 0.2 % (0.0-2.0); Eosinophils # (Auto) 0.11 K/mcL (0.00-0.70); Hemoglobin 12.6 g/dL (13.7-17.5); Lymphocytes # (Auto) 1.92 K/mcL (1.50-4.80); Lymphocytes % (Auto) 34.7 % (15.5-49.0); Mean Cell Volume 92.6 fL (80.0-100.0); Mean Corpuscular HGB Conc 32.3 g/dL (31.0-36.0); Monocytes # (Auto) 0.43 K/mcL (0.10-0.90); Monocytes % (Auto) 7.8 % (1.0-12.0); Neutrophils % (Auto) 55.3 % (38.0-78.0); Platelet Count 166 K/mcL (140-440); RBC 4.21 M/mcL (4.63-6.08); Red Cell Distribution Width 13.8 % (11.5-14.5); WBC 5.5 K/mcL (4.5-11.0)
[2024-07-09 06:03] LABS: ALT/SGPT < 5 U/L (<40); AST/SGOT 18 U/L (<40); Albumin 3.8 gm/dL (3.2-5.2); Albumin/Globulin Ratio 1.7 (1.0-2.3); Alkaline Phosphatase 66 U/L (39-117); Bilirubin,Direct < 0.2 mg/dL (0-0.3); Bilirubin,Total 0.4 mg/dL (0.1-1.0); Blood Urea Nitrogen 10 mg/dL (8-23); Calcium 8.8 mg/dL (8.6-10.4); Carbon Dioxide 29 mmol/L (22-30); Chloride 101 mmol/L (96-108); Globulin 2.3 gm/dL (2.2-3.7); Glomerular Filtration Rate 83; Glucose 93 mg/dL (70-105); Lactate Dehydrogenase 178 U/L (135-225); Phosphorous 2.9 mg/dL (2.5-4.5); Potassium 3.6 mmol/L (3.3-5.1); Sodium 139 mmol/L (133-145); Triglycerides 140 mg/dL (<150); Uric Acid 2.7 mg/dL (2.5-8.0)
[2024-07-09] MEDS: LOSARTAN 50 MG TABLET PO SCH (09:15)
[2024-07-09] MEDS: LEVOTHYROXINE 75 MCG TABLET PO SCH (09:15)
[2024-07-09] MEDS: DONEPEZIL 10 MG TABLET PO SCH (09:15)
[2024-07-09] MEDS: FINASTERIDE 5 MG TABLET PO SCH (09:15)
[2024-07-09] MEDS: MIRABEGRON 25 MG PO SCH (09:41)
[2024-07-09] MEDS: Mirabegron [Myrbetriq] 50 mg tablet extended release PO SCH (20:43)
[2024-07-10] MEDS: DULoxetine 30 MG CAPSULE PO SCH (09:20)
[2024-07-10 10:11] VITALS: O2SAT 96
[2024-07-10 11:06] VITALS: TEMP 98.1
== END 2024-07-10 11:12 | disposition home or self-care (01) ==
LOC: ED 09:31 → ICU 09:31
PROVIDERS: ADMIT Internal Medicine; ATTEND Internal Medicine